=== PATIENT | male | born 1955 | race Caucasian/White ===

== ENCOUNTER 2020-09-08 08:51 | Outpatient (REF) | payer BC, SELFPAY ==
[2020-09-08 09:52] LABS: Alanine Aminotransferase 45 U/L (0-40); Albumin Level 4.4 g/dL (3.5-5.0); Alkaline Phosphatase 46 U/L (39-117); Aspartate Amino Transferase 34 U/L (5-37); Bilirubin Direct 0.2 mg/dL (0.0-0.5); Bilirubin Total 0.5 mg/dL (0.0-1.0); Total Protein 6.9 g/dL (6.5-8.0)
== END 2020-09-08 08:52 | disposition home or self-care (01) ==
LOC: HO.LAB 08:51
PROVIDERS: Visit Provider Psychiatry & Neurology Neurology
DX: G40.909 Epilepsy, unspecified, not intractable, without status epilepticus (principal)
CPT/HCPCS: 36415; 80076

== ENCOUNTER 2021-09-07 08:30 | Outpatient (REF) | payer BC, SELFPAY ==
[2021-09-07 09:33] LABS: Alanine Aminotransferase 42 U/L (0-40); Albumin Level 4.1 g/dL (3.5-5.0); Alkaline Phosphatase 44 U/L (39-117); Aspartate Amino Transferase 26 U/L (5-37); Bilirubin Direct 0.2 mg/dL (0.0-0.5); Bilirubin Total 0.3 mg/dL (0.0-1.0); Total Protein 6.6 g/dL (6.5-8.0)
== END 2021-09-07 08:31 | disposition home or self-care (01) ==
LOC: HO.LAB 08:30
PROVIDERS: PCP Pediatrics; Visit Provider Psychiatry & Neurology Neurology
DX: G40.909 Epilepsy, unspecified, not intractable, without status epilepticus (principal)
CPT/HCPCS: 36415; 80076

== ENCOUNTER 2022-09-06 08:40 | Outpatient (REF) | payer BC, SELFPAY ==
[2022-09-06 09:34] LABS: Phenytoin Dilantin 14.7 ug/mL (10.0-20.0)
[2022-09-06 09:38] LABS: Alanine Aminotransferase 62 U/L (0-40); Albumin Level 4.3 g/dL (3.5-5.0); Alkaline Phosphatase 45 U/L (39-117); Aspartate Amino Transferase 34 U/L (5-37); Bilirubin Direct 0.2 mg/dL (0.0-0.5); Bilirubin Total 0.6 mg/dL (0.0-1.0); Total Protein 6.7 g/dL (6.5-8.0)
== END 2022-09-06 08:41 | disposition home or self-care (01) ==
LOC: HO.LAB 08:40
PROVIDERS: PCP Pediatrics; Visit Provider Psychiatry & Neurology Neurology
DX: G40.909 Epilepsy, unspecified, not intractable, without status epilepticus (principal); Z79.899 Other long term (current) drug therapy
CPT/HCPCS: 36415; 80076; 80185

== ENCOUNTER 2023-09-05 08:46 | Outpatient (REF) | payer MEDICARE, SELFPAY ==
[2023-09-05 09:59] LABS: Alanine Aminotransferase 44 U/L (0-40); Albumin Level 4.2 g/dL (3.5-5.0); Alkaline Phosphatase 47 U/L (39-117); Aspartate Amino Transferase 26 U/L (5-37); Bilirubin Direct 0.2 mg/dL (0.0-0.5); Bilirubin Total 0.3 mg/dL (0.0-1.0); Total Protein 6.8 g/dL (6.5-8.0)
== END 2023-09-05 08:47 | disposition home or self-care (01) ==
LOC: HO.LAB 08:46
PROVIDERS: PCP Pediatrics; Visit Provider Psychiatry & Neurology Neurology
DX: G40.909 Epilepsy, unspecified, not intractable, without status epilepticus (principal)
CPT/HCPCS: 36415; 80076

== ENCOUNTER 2024-11-26 09:30 | Outpatient (REF) | payer MEDICARE, SELFPAY ==
--- OUTSIDE RECORDS SUMMARY | 2024-11-26 09:48 | XMS_ITS | Clinical Summary ---
Author Organization [facility] [address] [facility] lding Address [address] [place] [address] Phone Care Team Providers Care Joiners Supervisor Name Role Phone Chepe Bah MD Primary Care Provider [phone] Allergies Active Allergy Reactions Criticality Noted Date Comments Other 05/02/2014 Penicillins Rash 10/11/2022 Medications albuterol HFA (PROAIR HFA ; PROVENTIL HFA ; VENTOLIN HFA) 90 mcg/actuation inhaler Inhale by mouth. 4 Active finasteride (PROSCAR) 5 mg tablet Take 1 tablet (5 mg total) by mouth 1 (one) time each day. Active folic acid (FOLVITE) 1 mg tablet Take 1 tablet (1,000 mcg total) by mouth 1 (one) time each day. Active cholecalciferol (VITAMIN D-3) 25 mcg (1,000 unit) tablet Take 1 tablet (1,000 Units total) by mouth 1 (one) time each day. Active omega-3 fatty acids-fish oil 300-500 mg capsule Take 1 capsule by mouth 1 (one) time each day. Active multivitamin (MULTIPLE VITAMINS ORAL) Take 1 tablet by mouth 1 (one) time each day. Active tamsulosin (FLOMAX) 0.4 mg 24 hr capsule Take by mouth. 8 Active phenytoin (DILANTIN) 200 mg ER capsule Take by mouth. A ctive fluticasone propionate (FLONASE) 50 mcg/actuation nasal spray Administer into affected nostril(s). Active scopolamine (TRANSDERM-SCOP ) 1 mg over 3 days patch [address] 1 PATCH ONTO THE SKIN EVERY 3 DAYS. 4 patch 1 5 Active Wixela Inhub 500-50 mcg/dose diskus inhaler TAKE 1 PUFF BY MOUTH TWICE A DAY 180 each 5 Active dexAMETHasone (DECADRON) 4 mg tablet Take 1 tablet (4 mg total) by mouth 1 (one) time each day for 5 days. 5 each 5 Active cetirizine (ZyrTEC) 10 mg tablet Take 1 tablet (10 mg total) by mouth 2 (two) times a day for 10 days. 20 each 5 Active Gemtesa 75 mg tablet tablet Take 1 tablet (75 mg total) by mouth 1 (one) time each day. 5 Active Active Problems Problem Noted Date Diagnosed Date Overweight (BMI 25.0-29.9) 08/10/2019 BPH (benign prostatic hyperplasia) 08/18/2017 Overview (07/02/2024): 2/18- incidental on ultrasound, normal PSA Urinary retention 08/18/2017 Overview (07/02/2024): 2/18- large post void volume, started Flomax, referred to urology Spermatocele of epididymis, multiple 08/13/2016 Allergic rhinitis 05/02/2014 Asthma 05/02/2014 Hydrocele 05/02/2014 Overview (07/02/2024): Left. Previous ultrasound per pt. Seizure disorder (CMS/HCC V24, CMS/[facility] V28) 04/17 Overview (07/02/2024): dilantin Varicella 05/02/2014 Overview (07/02/2024): 03/17/92 Encounters Date Type Department Care Team Description 11/06/2024 9:00 AM EDT Office Visit Adult Medicine [address] [phone] Jose C Cuello PA Rash and other nonspecific skin eruption (Primary Dx); Penile swelling; Seizure disorder (CMS/HCC V24, CMS/HCC V28); Benign prostatic hyperplasia, unspecified whether lower urinary tract symptoms present; Elevated blood pressure reading in office without diagnosis of hypertension 11/02/2024 2:35 PM EDT - 11/02/2024 5:32 PM EDT Emergency [facility] [address] [place] [address] Clarke Gruber MD Rash and other nonspecific skin eruption (Primary Dx); Angioedema, initial encounter Discharge Disposition: Home or Self Care 11/02/2024 1:30 PM EDT Office Visit Adult Medicine [address] [phone] Michell Buitrago PA Rash (Primary Dx); Scrotal swelling; Testicle swelling from Last 3 Months Immunizations Name Administration Dates Next Due COVID-19 (Pfizer/Comirnaty) 12yo and older 03/29/2024 Influenza Quadravalent, 0.5m l (Fluad) 65yo and older 03/18/2023,04/15/2022,04/24/2021 Influenza Quadravalent, MDCK , 0.5ml, preservative free (Flucelvax) 6mo and older 05/01/2019,05/05/2018 Influenza Quadrivalent, 0.5m l, preservative free (Fluarix; FluLaval; Fluzone) ages 6mo and older (Afluria) 3yo and older 05/16/2017 Influenza trivalent, 0.5mL ( Fluad) 65yo and older 05/10/2024 Influenza trivalent, 0.5mL, preservative free (Fluarix; FluLaval; Fluzone) ages 6mo and older (Afluria) 3 years and older 03/18/2023,04/15/2022,05/01/2019,06/02,05/02/2014 Influenza trivalent, with pr eservative (Fluzone; Afluria) 6mo and older 06/02/2016,05/02/2014 Influenza, Unspecified 05/18/2021,05/18/2018 Moderna SARS-CoV-2 COVID-19, mRNA, LNP-S, preservative free 05/15/2021,10/21/2020,10/14/2020,09/16 Pfizer SARS-CoV-2 COVID-19, mRNA, LNP-S, preservative free 03/29/2024 Pneumococcal conjugate 13 va lent (Prevnar 13, PCV13) 2mo and older 08/28/2021 Pneumococcal conjugate 20 va lent (Prevnar 20, PCV 20) 2mo and older 11/29/2022 Pneumococcal polysaccharide 23 valent (Pneumovax 23) 2yo and older 10/31/2014 Tdap Tetanus diptheria acell ular pertussis (Boostrix; Adacel) 7yo and older 05/02/2014 Zoster Live 01/28/2023,02/18/2016 Zoster recombinant (Shingrix ) 19yo and older 06/07/2023,01/28/2023,12/31/2022 Surgical History Surgery Date Site/Laterality Comments OTHER SURGICAL HISTORY PROCEDURE: DENIES PREVIOUS SURGERY COLONOSCOPY 2007 [place] PROCEDURE: HISTORICAL COLONOSCOPY; COMMENT: adenoma COLONOSCOPY W/ POLYPECTOMY 10/28 PROCEDURE: DE COLSC FLX W/RMVL OF TUMOR POLYP LESION SNARE TQ; COMMENT: adenomas, tics and hemorrhoids; repeat in 1 year. Medical History Medical History Date Comments Asthma DX:Asthma Seizures ([facility]/HCC V24, CMS/HCC V28) DX:Seizures ([facility]) Family History Medical History Relation Name Comments No Known Problems Daughter Other: afib Father Arthritis Mother Thyroid disease Mother No Known Problems Son Relation Name Status Comments Daughter Alive Father Alive Mother Son Alive Social History Tobacco Use Types Packs/Day Years Used Date Smoking Tobacco: Never Smokeless Tobacco: Never Alcohol Use Standard Drinks/Week Comments Yes 2 (1 standard drink = 0.6 oz pur e alcohol) Sex and Gender Information Value Date Recorded Sex Assigned at Not on file Legal Sex Male 1:44 AM EST Gender Identity Not on file Sexual Orientation Not on file Travel History Travel Start Travel End [place] 10/02/2024 11/02/2024 Obstetrics History Last Filed Vital Signs Vital Sign Reading Time Taken Comments Blood Pressure 142/72 11/06/2024 9:22 AM EDT Pulse 59 11/06/2024 8:55 AM EDT Temperature 36.8 ??C (98.2 ??F) 11/06/2024 8:55 AM ED T Respiratory Rate 16 11/02/2024 4:25 PM EDT Oxygen Saturation 100% 11/02/2024 4:25 PM EDT Inhaled Oxygen Concentration - - Weight 74.4 kg (164 lb) 11/06/2024 8:55 AM EDT Height 182.9 cm (6') 11/06/2024 8:55 AM EDT Body Mass Index 22.24 11/06/2024 8:55 AM EDT Plan of Treatment Upcoming Encounters Date Type Department Care Team (Late st Contact Info) Description 12/18/2024 9:45 AM EDT Office Visit Adult Medicine - [facility] [address] [place] [phone] hCepe Bah MD [address] [place] [address] Health Maintenance Due Date Last Done Comments RSV Immunization Adult Patients (1 - Risk 60-74 years 1-dose series) 2015 Falls Risk Assessment 06/26/2022 Medicare Annual Wellness Visit 06/26/2022 Social Influencers of Health Screening 06/26/2022 DTaP,Tdap,and Td Vaccines (2 - Td or Tdap) 05/02/2024 05/02/2014 COVID-19 Vaccine ( season) 2024 03/29/2024, 03/29/2024, 04/19/2023, Additional history exists Depression Screening 12/22/2024 12/23/2023 Colorectal Cancer Screening: Colonoscopy 10/19/2025 10/19/2022 Cholesterol Screening (Lipid Panel) 12/18/2028 12/19/2023, 12/19/2023 Varicella Vaccines Aged Out 05/02/2014 No longer eligible based on patient's age to complete this topic Hepatitis C Screening Completed 10/31/2014 Pneumococcal Vaccine: 50+ Years Completed 11/29/2022, 08/28/2021, 10/31/2014 Zoster Vaccines Completed 06/07/2023, 01/15, 01/28/2023, Additional history exists Influenza Vaccine Completed 05/10/2024, , 03/18/2023, Additional history exists HIB Vaccines Aged Out No longer eligi ble based on patient's age to complete this topic HPV Vaccines Aged Out No longer eligi ble based on patient's age to complete this topic Hepatitis A Vaccines Aged Out No long er eligible based on patient's age to complete this topic Hepatitis B Vaccines Aged Out No long er eligible based on patient's age to complete this topic IPV Vaccines Aged Out No longer eligi ble based on patient's age to complete this topic MMR Vaccines Aged Out No longer eligi ble based on patient's age to complete this topic Meningococcal ACWY Vaccine Aged Out N o longer eligible based on patient's age to complete this topic Meningococcal B Vaccine Aged Out No l onger eligible based on patient's age to complete this topic RSV Immunization Patients Under 20 months Aged Out No longer eligible based on patient's age to complete this topic Procedures Procedure Name Priority Date/Time Associated Diagnosis Comments CBC WITH AUTO DIFFERENTIAL STAT 11/02/2024 3:36 PM EDT COMPREHENSIVE METABOLIC PANEL STAT 11/02/2024 3:36 PM EDT CBC AND DIFFERENTIAL STAT 11/02/2024 3:36 PM EDT DEPRESSION SCREENING Routine 12/23/2023 LIPID PANEL Routine 12/19/2023 COLONOSCOPY Routine 10/19/2022 HEPATITIS C SCREENING Routine 10/31/2014 from Last 3 Months or Most Recently Relevant to Health Maintenance Results * (ABNORMAL) CBC auto differential (11/02/2024 3:36 PM EDT) [facility] Signature WBC 8.0 4.8 - 10.8 K/[facility] LAB HEMETOLOGY METHOD 11/02/2024 3:57 PM EDT [facility] RBC 4.80 4.50 - 5.50 M/[facility] LAB HEMETOLOGY METHOD 11/02/2024 3:57 PM EDT [facility] Hemoglobin 16.5 13.5 - 17.5 g/dL LAB HEMETOLOGY METHOD 11/02/2024 3:57 PM EDT [facility] Hematocrit 48.5 42.0 - 54.0 % LAB HEMETOLOGY METHOD [facility] MCV 101.9(H) 79.0 - 98.0 FL LAB HEMETOLOGY METHOD 11/02/2024 3:57 PM EDT [facility] MCH 34.7(H) 27.0 - 32.0 pcg LAB HEMETOLOGY METHOD 11/02[facility]2024 [facility] MCHC 34.0 32.0 - 37.0 g/dL LAB HEMETOLOGY METHOD 11/02/2024 3[facility] RDW 12.5 11.0 - 15.0 % LAB HEMETOLOGY METHOD 11/02/2024 3:57 PM EDT [facility] Platelets 212 130 - 400 K/mcL LAB HEMETOLOGY METHOD 11/02/2024 3[facility] MPV 10.0 7.0 - 11.0 FL LAB HEMETOLOGY METHOD 11/02/2024 3[facility] NRBC 0.0 <1.0 % LAB HEMETOLOGY METHOD 11/02/2024 3:57 PM EDT [facility] NRBC Absolute 0.00 <0.10 K/mcL LAB HEMETOLOGY METHOD 11/02/2024 3:57 PM EDT [facility] Neutrophils Relative 66.1 % LAB HEMETOLOGY METHOD 11/02[facility]2024 [facility] Lymphocytes Relative 12.0 % LAB HEMETOLOGY METHOD 11/02/2024 3:57 PM EDT [facility] Monocytes Relative 10.2 % LAB HEMETOLOGY METHOD 11/02/2024 3:57 PM EDT [facility] Eosinophils Relative 10.8 % LAB HEMETOLOGY METHOD 11/02/2024 3:57 PM EDT [facility] Basophils Relative 0.5 % LAB HEMETOLOGY METHOD 11/02/2024 3:57 PM EDT [facility] Immature Granulocytes Relative 0.4 % LAB HEMETOLOGY METHOD 11/02/2024 3:57 PM EDT [facility] Neutrophils Absolute 5.28 1.50 - 7.00 K/mcL LAB HEMETOLOGY METHOD 11/02/2024 3:57 PM EDT [facility] Lymphocytes Absolute 0.96(L) 1.00 - 5.00 K/mcL LAB HEMETOLOGY METHOD 11/02/2024 3:57 PM EDT [facility] Monocytes Absolute 0.81 0.20 - 1.00 K/mcL LAB HEMETOLOGY METHOD 11/02/2024 3:57 PM EDT [facility] Eosinophils Absolute 0.86(H) 0.00 - 0.50 K/mcL LAB HEMETOLOGY METHOD 11/02/2024 3:57 PM EDT [facility] Basophils Absolute 0.04 0.00 - 0.20 K/mcL LAB HEMETOLOGY METHOD 11/02/2024 3:57 PM EDT [facility] Immature Granulocytes Absolute 0.03 0.00 - 0.03 K/mcL LAB HEMETOLOGY METHOD 11/02/2024 3:57 PM EDT [facility] Blood Venous blood specimen / Unknown Venipuncture / Unknown 11/02/2024 3:36 PM EDT 11/02/2024 3:49 PM EDT us Clarke Gruber MD LAB BLOOD ORDERABLES Final Result [facility] [address] [place] [address], * Comprehensive metabolic panel (11/02/2024 3:36 PM EDT) Sodium 135 133 - 145 mmol/L LAB CHEMISTRY METHOD 11/02/2024 4:30 PM EDT [facility] Potassium 4.0 3.5 - 5.5 mmol/L LAB CHEMISTRY METHOD 11/02/2024 4:30 PM EDT [facility] Chloride 102 96 - 110 mmol/L LAB CHEMISTRY METHOD 11/02[facility]24 [facility] CO2 30 21 - 32 mmol/L LAB CHEMISTRY METHOD 11/02/2024 4:30 PM [facility] Anion Gap 3 3 - 11 LAB CHEMISTRY METHOD 11/02/2024 4:30 PM [facility] Glucose 86 70 - 100 mg/dL LAB CHEMISTRY METHOD 11/02/2024 4:30 PM [facility] BUN 12 5 - 25 mg/dL LAB CHEMISTRY METHOD 11/02/2024 4:30 PM [facility] Creatinine 0.95 0.70 - 1.30 mg/dL LAB CHEMISTRY METHOD 11/02/2024 4:30 PM [facility] eGFR 87 >=60 mL/min/1. 73m2 LAB CHEMISTRY METHOD 11/02/2024 4:30 PM [facility] Comment:Calculation based on the??Chronic Kidney Disease Epidemiology Collaboration (CKD-EPI) equation refit??without adjustment for race. BUN/Creatinine Ratio 12.6 LAB CHEMISTRY METHOD 11/02/2024 4:30 PM [facility] Calcium 9.1 8.5 - 10.5 mg/dL LAB CHEMISTRY METHOD 11/02/2024 4:30 PM [facility] AST (SGOT) 20 10 - 42 unit/L LAB CHEMISTRY METHOD 11/02/2024 4:30 PM EDT [facility] ALT (SGPT) 56 10 - 60 unit/L LAB CHEMISTRY METHOD 11/02/2024 4:30 PM EDT [facility] Alkaline Phosphatase 47 42 - 121 unit/L LAB CHEMISTRY METHOD 11/02/2024 4:30 PM EDT [facility] Total Protein 7.0 6.0 - 8.0 g/dL LAB CHEMISTRY METHOD 11/02/2024 4:30 PM EDT [facility] Albumin 3.9 3.2 - 5.0 g/dL LAB CHEMISTRY METHOD 11/02/2024 4:30 PM EDT [facility] Total Bilirubin 0.4 0.0 - 1.4 mg/dL LAB CHEMISTRY METHOD 11/02/2024 4:30 PM EDT [facility] Blood Venous blood specimen / Unknown Venipuncture / Unknown 11/02/2024 3:36 PM EDT 11/02/2024 3:49 PM EDT Clarke Gruber MD LAB BLOOD ORDERABLES Final Result [facility] [address] [place] [address], * Depression Screening (12/23/2023) Depression Screening abstracted Historical Provider HEALTH MAINTENANCE Final Result * (ABNORMAL) Lipid panel (12/19/2023) LDL/HDL Ratio 2 0 - 4 Triglycerides 38 0 - 150 mg/dL Cholesterol 225(A) 0 - 200 mg/dL HDL 115 >=40 mg/dL LDL Cholesterol 103(A) 0 - 100 mg/dL Blood Venous blood specimen / Unknown Historical Provider LAB BLOOD ORDERABLES Meredith l Result * Colonoscopy (10/19/2022) Colonoscopy no interpretation , abstracted Anatomical Region Laterality Modality Other Historical Provider HEALTH MAINTENANCE Final Result * Hepatitis C Screening (10/31/2014) Pathologist [facility] Hepatitis C Screening abstracted Historical Provider HEALTH MAINTENANCE Final Result from Last 3 Months or Most Recently Relevant to Health Maintenance Insurance MEDICARE [facility] Care Teams Joiners Supervisor Relationship Specialty Start Date End Date Chepe Bah MD [address] [place] [address] [place] [id number] PCP - General Internal Medicine 12/27/13
[2024-11-26 11:23] LABS: Alanine Aminotransferase 63 U/L (0-40); Albumin Level 4.1 g/dL (3.5-5.0); Aspartate Amino Transferase 41 U/L (5-37); Bilirubin Direct 0.1 mg/dL (0.0-0.5); Bilirubin Total 0.3 mg/dL (0.0-1.0); Total Protein 6.7 g/dL (6.5-8.0)
[2024-11-26 12:23] LABS: Alkaline Phosphatase 42 U/L (39-117)
== END 2024-11-26 09:31 | disposition home or self-care (01) ==
LOC: HO.LAB 09:30
PROVIDERS: PCP Pediatrics; Visit Provider Registered Nurse
DX: G40.909 Epilepsy, unspecified, not intractable, without status epilepticus (principal)
CPT/HCPCS: 36415; 80076